=== PATIENT | male | born 1990 | race Caucasian/White ===

== ENCOUNTER 2020-12-13 15:31 | Emergency (ER) | payer OTHER ==
[~2020-12-13 15:31] MED LIST: KEPPRA500 MG PO
[2020-12-13] MEDS ORDERED: NAPROXEN500 MG PO (17:58)
[2020-12-13] MEDS ORDERED: NORCO 5-325 TA1 EACH PO (17:58)
== END 2020-12-13 18:20 | disposition home or self-care (01) ==
LOC: FER 15:31
DX: S42.402A Unspecified fracture of lower end of left humerus, initial encounter for closed fracture (principal); F17.210 Nicotine dependence, cigarettes, uncomplicated; W50.0XXA Accidental hit or strike by another person, initial encounter; Y93.72 Activity, wrestling
CPT/HCPCS: 73060

== ENCOUNTER 2021-03-08 15:51 | Emergency (ER) | payer OTHER ==
[~2021-03-08 15:51] MED LIST changes: +NAPROXEN500 MG PO; +NORCO 5-325 TA1 EACH PO
[2021-03-08] MEDS ORDERED: MOTRIN600 MG PO (16:58)
== END 2021-03-08 17:40 | disposition home or self-care (01) ==
LOC: FER 15:51
DX: S42.402A Unspecified fracture of lower end of left humerus, initial encounter for closed fracture (principal); F17.210 Nicotine dependence, cigarettes, uncomplicated; Z88.0 Allergy status to penicillin; X58.XXXA Exposure to other specified factors, initial encounter; Y92.009 Unspecified place in unspecified non-institutional (private) residence as the place of occurrence of the external cause
CPT/HCPCS: 73060